=== PATIENT | female | born 2000 | race Hispanic/Latino ===

== ENCOUNTER 2022-10-31 10:29 | Day surgery (SDC) | payer SELFPAY ==
[2022-10-31] MEDS ORDERED: Midazolam HCl 2 mg/2 ml Vial ONE (11:56)
[2022-10-31] MEDS ORDERED: Fentanyl 250 MCG/5 ML VIAL ONE (14:27)
[2022-10-31] MEDS ORDERED: SUGAMMADEX SODIUM 200 MG/2 ML VIAL ONE (14:27)
[2022-10-31] MEDS ORDERED: Bupivacaine/Epinephrine 0.25% 30 ML VIAL ONE (14:28)
[2022-10-31] MEDS ORDERED: ceFOXitin 1 GM VIAL ONE (14:41)
[2022-10-31] MEDS ORDERED: Sodium Chloride 0.9% 100 ML ONE (14:42)
[2022-10-31] MEDS ORDERED: Ondansetron PF 4 MG/2 ML Vial ONE (14:50)
[2022-10-31] MEDS ORDERED: Ketorolac Tromethamine 30 MG/ML VIAL ONE (14:50)
[2022-10-31] MEDS ORDERED: PROPOFOL 200 MG/20 ML VIAL ONE (14:50)
[2022-10-31] MEDS ORDERED: Lidocaine 1% PF 5 ML VIAL ONE (14:50)
[2022-10-31] MEDS ORDERED: PHENYLEPHRINE-NS 100 MCG/ML 10 ML SYRINGE ONE (14:50)
[2022-10-31] MEDS ORDERED: Rocuronium Bromide 10 MG/ML (10ML VIAL) ONE (14:50)
[2022-10-31] MEDS ORDERED: Dexamethasone 20 MG/5 ML VIAL ONE (14:50)
[2022-10-31] MEDS ORDERED: Promethazine HCl 25 MG/ML VIAL IM PRN (15:52)
[2022-10-31] MEDS ORDERED: Ondansetron HCl/PF 4 MG/2 ML Vial IVP PRN (15:52)
== END 2022-10-31 17:53 | disposition home or self-care (01) ==
LOC: ERS 10:29 → SDC 10:29 → ERS 17:43 → SDC 17:53
PROVIDERS: ATTEND Surgery
PROC: 0DTJ4ZZ Resection of Appendix, Percutaneous Endoscopic Approach (ICD-10-PCS; principal; 2022-10-31)
DX: K35.80 Unspecified acute appendicitis (principal)
CPT/HCPCS: 88304; A4649; C1776; J0694; J1100; J1885; J2250; J2405; J2704; J3010; J3490